=== PATIENT | male | born 2000 | race Caucasian/White ===

== ENCOUNTER 2022-09-22 20:06 | Emergency (ER) | payer BC, MEDICAID ==
[2022-09-22] MEDS ORDERED: Amoxicillin/Clavulanate K 875-125 MG Tab PO ONE (20:53)
[2022-09-22] MEDS ORDERED: Ibuprofen 600 MG Tab PO ONE (20:53)
== END 2022-09-22 21:02 | disposition home or self-care (01) ==
LOC: FB.ED 20:06
DX: K05.10 Chronic gingivitis, plaque induced (principal)
CPT/HCPCS: 99282; A9270-GY